=== PATIENT | female | born 1965 | race Caucasian/White ===

== ENCOUNTER 2024-09-30 09:36 | Outpatient (REF) | payer BC, SELFPAY ==
--- NOTE | ~2024-09-30 | XR_ITS ---
CLINICAL HISTORY: M54.12 - Radiculopathy, cervical region Three views of the lumbar spine. COMPARISON: None provided. FINDINGS: Five eti-mia-jehzjeq lumbar type vertebral bodies. Grade 1 anterolisthesis of L5 on S1 with likely bilateral pars defects at L5. Vertebral body heights are maintained. No evidence of acute vertebral body injury. Marginal osteophytes present throughout the lumbar spine. Facet joint arthrosis in the lower lumbar spine most pronounced at L5-S1. There is neural foraminal narrowing at L5-S1. Visualized portions of the bones of the pelvis appear intact. IMPRESSION: 1. No radiographic evidence of acute injury to the lumbar spine. 2. Grade 1 anterolisthesis of L5 on S1 likely secondary to bilateral pars defects at L5. 3. Multilevel degenerative changes of the lumbar spine most pronounced at L5-S1. This document has been electronically signed by: Tre Martínez MD on 10/01/2024 16:48:22
--- NOTE | ~2024-09-30 | XR_ITS ---
CLINICAL HISTORY: M54.12 - Radiculopathy, cervical region Five views of the cervical spine. COMPARISON: None provided. FINDINGS: Grade 1 anterolisthesis of C4 on C5. No evidence of acute vertebral body injury. Normal C1-C2 articulation. Loss of disc space height in the midcervical most pronounced at C5-6. Facet joint arthrosis present throughout the cervical spine. Neural foraminal narrowing most pronounced on the right at C2-C3 and C5-6 and on the left at C5-6. Visualized paravertebral soft tissues and lung apices are unremarkable. IMPRESSION: 1. No radiographic evidence of acute injury to the cervical spine. 2. Grade 1 anterolisthesis of C4 on C5. 3. Moderate to advanced multilevel cervical spondylosis most pronounced at C5-6. This document has been electronically signed by: Tre Martínez MD on 10/01/2024 16:50:55
== END 2024-09-30 09:37 | disposition home or self-care (01) ==
LOC: HO.XRAY 09:36
PROVIDERS: PCP Internal Medicine; Visit Provider Internal Medicine
DX: Z76.89 Persons encountering health services in other specified circumstances (principal); R20.0 Anesthesia of skin; M54.12 Radiculopathy, cervical region; J45.909 Unspecified asthma, uncomplicated; Z13.31 Encounter for screening for depression; Z13.30 Encounter for screening examination for mental health and behavioral disorders, unspecified
CPT/HCPCS: 72050; 72100; 96127

== ENCOUNTER 2024-09-30 09:36 | Outpatient (AMB) | payer BC, SELFPAY ==
--- NOTE | 2024-09-30 09:49 | MHC.PC.OV ---
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 Intake Note: New patient visit Marketing Support Specialist Required: No Allergies No Known Allergies Allergy (Verified 09/30/24 09:49) Tobacco use date assessed: 09/30/24 Dental Screening Dental Screen Date: 09/30/24 Did you have a dental visit in the last 12 months?: Yes Did you have a dental problem in the last 6 months where you did not have access to dental care?: No Was dental information given to patient?: Patient has dentist HPI HPI Comments History of Present Illness Details 59 year old female with a past medical history of asthma, sinusitis presenting to [facility]. Transfer from [facility] Asthma: Controlled on current medications. Has shoulder pain, tightness orginating from neck, some tingling down arm. Bilateral foot pain, numbness tingling. 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 NAD EYES: EOMI. Anicteric. HENT: Moist mucous membranes. No scleral icterus. No cervical lymphadenopathy. LUNGS: Clear to auscultation bilaterally. CARDIOVASCULAR: Regular rate and rhythm. No murmur. No JVD. ABDOMEN: Soft, non-tender +bs EXTREMITIES: No edema. Non-tender. SKIN: No rashes or lesions. Warm. NEUROLOGIC: No focal neurological deficits. CN II-XII grossly intact PSYCHIATRIC: Cooperative. Appropriate mood and affect [facility] Surgical History H/O knee surgery Family History Mother Asthma HTN (hypertension) Bladder cancer Social History Housing: House Alcohol intake: current Patient Tobacco Use Status: Former Tobacco user (quit at 21 years old) Cigarette Packs Per Day: 0.5 Years Smoked: 4 e-Cigarette/Vaping Use: Never Used Second Hand Smoke Exposure: No service: No Current occupational status: employed Current occupation: customer service Current occupational exposures/hazards: No Cognitive needs: No Hearing needs: No Vision needs: Yes (reading glasses) Questionnaire PHQ-9 Over the last 2 weeks, how often have you been bothered by any of the following problems? 1. Little interest or pleasure in doing things: not at all 2. Feeling down, depressed, or hopeless: not at all 3. Trouble falling or staying asleep, or sleeping too much: not at all 4. Feeling tired or having little energy: not at all 5. Poor appetite or overeating: not at all 6. Feeling bad about yourself - or that you are a failure or have let yourself or your family down: not at all 7. Trouble concentrating on things, such as reading the newspaper or watching television: not at all 8. Moving or speaking so slowly that other people could have noticed. Or the opposite - being so fidgety or restless that you have been moving around a lot more than usual: not at all 9. Thoughts that you would be better off or of hurting yourself in some way: not at all Total score: 0 Depression Screening Interpretation: Negative Depression Screening Done: Yes 28750 - PHQ-9 Billing: Yes Source: Developed by Drs. Eliud Emmanuel, Alyssa Quezada, Tico Sheehan and colleagues, with an educational yamilet from [employer]. Thrive Questionnaire Date Thrive assessed: 09/24/24 I am a: Patient What is your living situation today?: I have a steady place to live Within the past 12 months, did the food you bought not last and you didn't have the money to get more?: Never true Within the past 12 months, did you worry whether your food would run out before you got money to buy more?: Never true Do you have trouble paying for medicines?: No Do you have trouble getting transportation to medical appointments?: No Do you have trouble paying your heating and electricity bill?: No Do you have trouble taking care of your child, family member or friend?: No Do you have trouble with day-to-day activities such as bathing, preparing meals, shopping, managing finances, etc.?: No Are you currently unemployed and looking for a job?: No Are you interested in more education?: No Please select the resources that you would like help with: None Currently or been in a relationship where the following occur: No concerns reported THRIVE Score: 0 AUDIT C Alcohol Use Questionnaire (AUDIT-C) 1. How often do you have a drink containing alcohol?: 2-3 times a week 2. How many drinks containing alcohol do you have on a typical day when you are drinking?: 1 or 2 3. How often do you have six or more drinks on one occasion?: Never Total Score: 3 ELADIO-7 AMB Questionnaire ELADIO-7 Date ELADIO - 7 assessed: 09/30/24 Feeling nervous, anxious, or on edge: 0 = Not at all Not being able to stop or control worryin = Not at all Worrying too much about different things: 0 = Not at all Trouble relaxin = Not at all Being so restless that it is hard to sit still: 0 = Not at all Becoming easily annoyed or irritable: 0 = Not at all Feeling afraid as if something awful might happen: 0 = Not at all Total ELADIO-7 score (0-4 normal; 5-9 mild; 10-14 moderate; 15-21 severe): 0 Source: Developed by Drs. Eliud Emmanuel, Aylssa Quezada, Tico Sheehan and colleagues, with an educational yamilet from [employer]. ELADIO-7 Assessment Billing ELADIO-7 Assessment Tool: ELADIO-7 Assessment 78942 Physical exam (Primary Care) Vital Signs: Last Vital Signs Temp 98 F 09/30/24 09:53 Pulse 73 09/30/24 09:53 Resp 12 09/30/24 09:53 BP 124/82 09/30/24 09:53 Pulse Ox 95 09/30/24 09:53 Oxygen Delivery Method Room Air 09/30/24 09:53 BMI result Body Mass Index 25.6 Tobacco/Smoking Status: Tobacco use Status Tobacco use date assessed 09/30/24 09/30/24 10:02 Patient Tobacco Use Status Former Tobacco user (quit at 09/30/24 10:02 21 years old) e-Cigarette/Vaping Use Never Used 09/30/24 10:02 PHQ-9: PHQ-9 Score PHQ-9: Total score 0 10/01/24 14:51 Depression Screening Interpretation: Negative Thrive Assessment: Date of Thrive Assessment Date Thrive assessed 09/24/24 09/30/24 09:49 Currently or been in a relationship where the following occur: No concerns reported Coding Level of Care Code New Pt Level 4 (25188) Complex EM visit Add On G2211 Diagnoses Encounter to establish care Z76.89 Numbness of right foot R20.0 Cervical radiculopathy M54.12 Additional Codes ELADIO-7 Assessment Billing - ELADIO-7 Assessment Tool: ELADIO-7 Assessment 01122 ([id number]) PHQ-9 - 47163 - PHQ-9 Billing: Yes ([id number]) Assessment & Plan Assessment & Plan (1) Encounter to establish care: Code(s): Z76.89 - Persons encountering health services in other specified circumstances Category: Medical (2) Numbness of right foot: Code(s): R20.0 - Anesthesia of skin Category: Medical (3) Cervical radiculopathy: Code(s): M54.12 - Radiculopathy, cervical region Category: Medical Plan 59 year old to establish care Past medical surgical, social reviewed Right foot numbness, peripheral numbness-xrays ordered GI referral colon cancer screening Orders: Orders Complete Blood Count Auto Diff 09/30/24 M54.12 - Radiculopathy, cervical region, R20.0 - Anesthesia of skin, Z13.0 - Encounter for screening for diseases of the blood and blood-forming organs and certain disorders involving the immune mechanism, Z13.220 - Encounter for screening for lipoid disorders, Z13.228 - Encounter for screening for other metabolic disorders Comprehensive Met. Panel 09/30/24 M54.12 - Radiculopathy, cervical region, R20.0 - Anesthesia of skin, Z13.0 - Encounter for screening for diseases of the blood and blood-forming organs and certain disorders involving the immune mechanism, Z13.220 - Encounter for screening for lipoid disorders, Z13.228 - Encounter for screening for other metabolic disorders Lipid Panel 09/30/24 M54.12 - Radiculopathy, cervical region, R20.0 - Anesthesia of skin, Z13.0 - Encounter for screening for diseases of the blood and blood-forming organs and certain disorders involving the immune mechanism, Z13.220 - Encounter for screening for lipoid disorders, Z13.228 - Encounter for screening for other metabolic disorders Vitamin B12 and Folate 09/30/24 M54.12 - Radiculopathy, cervical region, R20.0 - Anesthesia of skin, Z13.0 - Encounter for screening for diseases of the blood and blood-forming organs and certain disorders involving the immune mechanism, Z13.220 - Encounter for screening for lipoid disorders, Z13.228 - Encounter for screening for other metabolic disorders Hemoglobin A1c 09/30/24 M54.12 - Radiculopathy, cervical region, R20.0 - Anesthesia of skin, Z13.0 - Encounter for screening for diseases of the blood and blood-forming organs and certain disorders involving the immune mechanism, Z13.220 - Encounter for screening for lipoid disorders, Z13.228 - Encounter for screening for other metabolic disorders XR cervical spine 4V 09/30/24 M54.12 - Radiculopathy, cervical region, R20.0 - Anesthesia of skin IRON PROFILE 09/30/24 M54.12 - Radiculopathy, cervical region, R20.0 - Anesthesia of skin, Z13.0 - Encounter for screening for diseases of the blood and blood-forming organs and certain disorders involving the immune mechanism, Z13.220 - Encounter for screening for lipoid disorders, Z13.228 - Encounter for screening for other metabolic disorders XR lumbar spine 2-3V 09/30/24 M54.12 - Radiculopathy, cervical region, R20.0 - Anesthesia of skin Referrals Gastroenterology Referral Z12.11 - Encounter for screening for malignant neoplasm of colon
[2024-09-30 09:53] VITALS: BP 124/82; PULSE 73; RESP 12; TEMP 36.6; O2SAT 95; BMI 25.6
== END 2024-09-30 10:21 | disposition home or self-care (01) ==
LOC: HO.HMCFM 09:37
PROVIDERS: PCP Internal Medicine; Visit Provider Internal Medicine
DX: Z76.89 Persons encountering health services in other specified circumstances (principal); R20.0 Anesthesia of skin; M54.12 Radiculopathy, cervical region

== ENCOUNTER 2024-09-30 10:34 | Outpatient (REF) | payer BC, SELFPAY ==
[2024-09-30 14:44] LABS: MANUAL DIFF FLAG NO
[2024-09-30 14:55] LABS: Hematocrit 41.5 % (37.0-47.0); Hemoglobin 13.6 g/dl (12.0-16.0); Imm Gran Abs Auto 0.02 X10*3/uL (0.00-0.03); Imm Gran Pct Auto 0.3 % (0.0-0.4); Lymphocytes Absolute Auto 1.7 X10*3/uL (1.2-4.9); Mean Corpuscular HGB Conc 32.8 g/dl (31.0-35.0); Mean Corpuscular Hemoglobin 29.1 pg (27.0-33.0); Mean Corpuscular Volume 88.7 fL (80.0-98.0); NRBC Abs Auto 0.000 X10*3/uL (0.0-0.012); NRBC Pct Auto 0.0 /100WBC (0.0-0.2); Platelet Count 284 X10*3/uL (160-400); Red Blood Count 4.68 X10*6/uL (4.20-5.50); White Blood Count 6.7 X10*3/uL (4.8-10.8)
[2024-09-30 15:09] LABS: Hemoglobin A1C 135.1510 umol/L; Total Hemoglobin (HGBA1C) 3543.5086 umol/L
[2024-09-30 15:23] LABS: Alanine Aminotransferase 26 U/L (0-31); Albumin Level 4.3 g/dL (3.5-5.0); Alkaline Phosphatase 58 U/L (39-117); Anion Gap 11 (12-20); Aspartate Amino Transferase 31 U/L (5-31); Blood Urea Nitrogen 21 mg/dL (9-16); Calcium 9.0 mg/dL (8.4-10.2); Carbon Dioxide 25 mmol/L (22-29); Chloride 106 mmol/L (96-108); Cholesterol 228 mg/dL (<200); Estimated Glomerular Filt Rate > 60; HDL Cholesterol 82 mg/dL (>40); Iron 87 mcg/dL (30-160); Percent Iron Saturation 24 % (15-50); Potassium 4.4 mmol/L (3.3-5.1); Sodium 138 mmol/L (135-145); Total Iron Binding Capacity 362 mcg/dL (228-428); Total Protein 6.6 g/dL (6.5-8.0); Triglycerides 80 mg/dL (<150); Unsaturated Iron Binding 275 ug/dL
[2024-09-30 15:52] LABS: Folate 12.2 ng/mL (> or = 4.0); Vitamin B12 468 pg/mL (200-900)
== END 2024-09-30 10:35 | disposition home or self-care (01) ==
LOC: HO.WFDLDS 10:34
PROVIDERS: Visit Provider Internal Medicine
DX: R20.0 Anesthesia of skin (principal); Z13.228 Encounter for screening for other metabolic disorders; Z13.0 Encounter for screening for diseases of the blood and blood-forming organs and certain disorders involving the immune mechanism; Z13.220 Encounter for screening for lipoid disorders; M54.12 Radiculopathy, cervical region; Z13.1 Encounter for screening for diabetes mellitus
CPT/HCPCS: 36415; 80053; 80061; 82607; 82746; 83036; 83540; 85025

== ENCOUNTER → 2024-09-30 11:24 | Outpatient (BNV) | payer BC, SELFPAY | PROVIDERS: PCP Internal Medicine; Visit Provider Radiology Diagnostic Radiology | DX: M47.22 Other spondylosis with radiculopathy, cervical region (principal); M43.12 Spondylolisthesis, cervical region; M43.16 Spondylolisthesis, lumbar region; M51.379 Other intervertebral disc degeneration, lumbosacral region without mention of lumbar back pain or lower extremity pain | CPT/HCPCS: 72050; 72100 ==

== ENCOUNTER 2025-02-03 10:58 | Outpatient (AMB) | payer BC, SELFPAY ==
--- NOTE | 2025-02-03 11:09 | MHC.OFFVIS ---
Vital Signs 02/03/25 11:14 Height 5 ft 4 in Weight 144 lb BMI 24.7 BP 122/74 Blood Pressure Location Rt brachial Position Sitting Pulse 78 Pulse Source Pulse Oximeter Pulse Oximetry (%) 95 Oxygen Delivery Method Room Air Intake Visit Reasons: Colonoscopy Screening Intake Note: New pt for recall colo screening + eval chronic GERD. CC: C.O. intermittent GERD w/o active tx. Pt states that she had previously trialed omeprazole w/ mixed results. Pt never received EGD as this was going to occur during COVID 19 pandemic according to pt. No additional sx to report. 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 female with past medical history of asthma, GERD is here today for pre colonoscopy screening.? Patient was sent to us by her PCP.? Patient reports she had colonoscopy in the past.? Patient reports acid reflux on a. Was placed on omeprazole in the past. Taking as needed. Never had endoscopy in the past.? Denies any family history of CRC.? Denies history of difficulty with sedation or anesthesia in the past.? Negative for history of sleep apnea.? Denies any history of cardiac, renal, pulmonary, or hepatic disease.?? No history of infectious? diseases like hepatitis A, B, C, HIV or tuberculosis.? Patient is not on any anticoagulation [facility] Medical History (Updated 02/03/25 @ 19:16 by Frannie Royal, [facility]) GERD (gastroesophageal reflux disease) Hiatal hernia Surgical History Hx of colonoscopy H/O knee surgery Family History Mother Asthma HTN (hypertension) Bladder cancer Social History Housing: House Alcohol intake: current Patient Tobacco Use Status: Former Tobacco user (quit at 21 years old) Cigarette Packs Per Day: 0.5 Years Smoked: 4 e-Cigarette/Vaping Use: Never Used Second Hand Smoke Exposure: No service: No Current occupational status: employed Current occupation: customer service Current occupational exposures/hazards: No Cognitive needs: No Hearing needs: No Vision needs: Yes (reading glasses) Review of Systems Const Denies weight gain and Denies weight loss ENT Reports no additional complaints, Denies dysphagia and Denies odynophagia Card Reports no additional complaints Resp Reports no additional complaints GI Reports abdominal pain (Epigastric), Denies belching, Denies melena, Denies bloating, Denies change in bowel habits, Denies dysphagia, Denies excessive flatus, Denies dyspepsia, Reports heartburn, Denies diarrhea, Denies loose stools, Denies nausea, Denies odynophagia and Denies vomiting Musc Reports no additional complaints Neuro Reports no additional complaints Psych Reports no additional complaints Endo Reports no additional complaints Physical Exam Vital Signs: Last Vital Signs Pulse 78 02/03/25 11:14 BP 122/74 02/03/25 11:14 Pulse Ox 95 02/03/25 11:14 Oxygen Delivery Method Room Air 02/03/25 11:14 BMI result Body Mass Index 24.7 Const General: healthy appearing, no acute distress and well developed Nutritional Appearance: well nourished Orientation/consciousness: patient oriented x3 Resp Effort & Inspection: normal respiratory effort, able to speak in complete sentences, no tracheal deviation and symmetric chest movement Auscultation: clear to auscultation bilaterally Cardio Rate: regular rate GI Inspection: Yes normal to inspection and No distended Palpation (GI): Soft to palpation, not firm, nontender and No hepatosplenomegaly present Auscultation: normal bowel sounds General: Yes no CVA tenderness Back/Spine/Pelvis Back: no CVA tenderness Skin General skin exam: elasticity normal, turgor normal and dry skin Neuro General: patient oriented x3 Psych Appearance: grossly normal Mental Status: mental status grossly normal Assessment & Plan Assessment & Plan (1) Screening for colon cancer: Code(s): Z12.11 - Encounter for screening for malignant neoplasm of colon Category: Medical (2) GERD (gastroesophageal reflux disease): Code(s): K21.9 - Gastro-esophageal reflux disease without esophagitis Category: Medical Qualifiers: Esophagitis presence: esophagitis presence not specified Qualified Code(s): K21.9 - Gastro-esophageal reflux disease without esophagitis Plan Patient denies any cardiac or respiratory symptoms.? Reports occasional reflux depending on what she eats. Patient will be sent for upper endoscopy. We will also send her for upper GI series with barium swallow. Denies any issues with anesthesia in the past.? Denies any history of sleep apnea.? No history infectious diseases in the past or present.? Not on any anticoagulation therapy.? No family or personal history of colon cancer or polyps.? Patient denies melena, hematochezia, unintentional weight loss or ribbon like stools.? Discussed at length the pre-procedure,? prep, diet & medications as well as what to expect prior, during and after the procedure.?? Stressed the importance of good bowel prep.? Recommended the use of Vaseline or Calmoseptine OTC & baby wipes with bowel movements to promote comfort.? ?Patient verbalizes understanding and agrees to plan of care.? She was given the opportunity to ask questions and all questions answered.? We will see her after the procedure.? Orders: Orders [place] upper GI w Ba Swallow Today K21.9 - Gastro-esophageal reflux disease without esophagitis Referrals GI Procedure Notification K21.9 - Gastro-esophageal reflux disease without esophagitis, Z12.11 - Encounter for screening for malignant neoplasm of colon Medications: New polyethylene glycol 3350 (Miralax) As directed by gastroenterology department at [facility] 238 grams PO ONCE 238 grams 0RF Z12.11 - Encounter for screening for malignant neoplasm of colon bisacodyl (Dulcolax (bisacodyl)) take 4 tabs at noon the day before your colonoscopy 20 mg (4 x 5 mg) PO ONCE 4 tabs 0RF constipation 1 day Z12.11 - Encounter for screening for malignant neoplasm of colon Coding Level of Care Code New Pt Level 4 (02806) Diagnoses Screening for colon cancer Z12.11 Gastroesophageal reflux disease, unspecified whether esophagitis present K21.9 Esophagitis presence: esophagitis presence not specified Time Spent (min) 50 Comment 35 minutes spent with patient and additional 15 minutes spent reviewing her records
[2025-02-03 11:14] VITALS: BP 122/74; PULSE 78; O2SAT 95; BMI 24.7
--- OUTSIDE RECORDS SUMMARY | 2025-02-03 13:21 | XMS_ITS ---
Author Name [facility] Organization Unknown Care Team Organization Name Specialty Phone Email Start Date End Da te [facility] NULL Primary Care 09/08/2022 11/19/2023 [facility] Primary [facility] 04/10/202210/31 [facility] Primary Care 02/07/202210/31
--- OUTSIDE RECORDS SUMMARY | 2025-02-03 13:21 | XMS_ITS | Clinical Summary ---
Author Organization [facility] [address] [facility] l[facility] Address [address] [place] [address] Phone Care Team Providers Care Management Lead Name Role Phone Unavailable Primary Care Provider Unavailabl e Allergies Active Allergy Reactions Criticality Noted Date Comments Other 07/20/2017 Seasonal Allergies Medications albuterol 2.5 mg /3 mL (0.083 %) nebulizer solution Inhale 3 mL (2.5 mg total) by mouth every 4 (four) hours if needed for wheezing or shortness of breath (cough). 0 Active fluticasone propionate (FLONASE) 50 mcg/actuation nasal spray Administer 2 sprays into affected nostril(s) 1 (one) time each day. 3 Active montelukast (SINGULAIR) 10 mg tabletIndications :Moderate persistent asthma without complication Take 1 tablet (10 mg total) by mouth at bedtime. 90 tablet 2 4 Active budesonide-formot Kiki (SYMBICORT) 160-4.5 mcg/actuation inhalerIndication s:Moderate persistent asthma without complication Inhale 2 puffs by mouth 2 (two) times a day. Rinse mouth with water after use to reduce aftertaste and incidence of candidiasis. Do not swallow. 3 each 3 4 Active albuterol HFA (PROAIR HFA ; PROVENTIL HFA ; VENTOLIN HFA) 90 mcg/actuation inhalerIndication s:Moderate persistent asthma without complication Inhale 2 puffs by mouth every 4 (four) hours if needed for wheezing or shortness of breath (cough). 6.7 g 3 Active Active Problems Problem Noted Date Diagnosed Date Heartburn 07/20/2017 Hiatal hernia with GERD 07/20/2017 Allergic rhinitis 11/30/2011 Asthma 11/30/2011 Immunizations Immunization Administration Dates Next Due Influenza trivalent, 0.5mL, preservative free (Fluarix; FluLaval; Fluzone) ages 6mo and older (Afluria) 3 years and older 12/15/2022,02/20/2022,01/13/2019,01/25,02/10/2017,01/06/2015,02/06/2014 ,01/02/2013,02/21/2012 Influenza trivalent, MDCK, 0 .5mL, preservative free (Flucelvax) 6mo and older 03/06/2024 [employer] SARS-CoV-2 COVID-19, mRNA, LNP-S, preservative free 03/28/2021,08/20/2020,07/30/2020 Pneumococcal polysaccharide 23 valent (Pneumovax 23) 2yo and older 11/30/2011 Tdap Tetanus diptheria acell ular pertussis (Boostrix; Adacel) 7yo and older 05/19/2022,11/30/2011 Zoster recombinant (Shingrix ) 19yo and older 05/23/2020,02/13/2020 Surgical History Surgery Date Site/Laterality Comments KNEE ARTHROSCOPY 2009 PROCEDURE: OR ARTHROSCOPY AID TX SPINE&/FX KNEE W/O FIXJ; COMMENT: acl repair 2009 - right WISDOM TOOTH EXTRACTION PROCEDURE: HISTORICAL WISDOM TEETH EXTRACTION; COMMENT: 4 out COLONOSCOPY 08/14/2014 PROCEDURE: HISTORICAL COLONOSCOPY; COMMENT: Diverticulosis, hemorrhoids, no polyps Medical History Medical History Date Comments Asthma 11/30/2011 DX:Asthma Allergic rhinitis 11/30/2011 DX:Allergic rh initis Right knee injury 12/2009 DX:Right knee injury; COMMENT: Orthopedist in [place] Family history of diabetes mellitus DX:Family history of diabete s mellitus Dysuria 03/30/2009 DX:Dysuria Asthmatic bronchitis 07/20/2006,11/20/2002 DX:Asth matic bronchitis Hemoptysis 11/16/2005 DX:Hemoptysis Lower back pain 10/22/2003 DX:Lower back pa in Historical Medical DX 08/20/2003 DX:Hammert oe; COMMENT: [place] with paresthesias Anxiety 12/19/2001 DX:Anxiety; COMM ENT: situational anxiety Family History Medical History Relation Name Comments Asthma Mother Bladder Cancer Mother diagnosed in her early 80's, dx 2014 Esophageal cancer Mother Breast cancer Neg Hx Colon cancer Neg Hx Ovarian cancer Neg Hx Uterine cancer Neg Hx Relation Name Status Comments Brother Judd Alive healthy Father Alive healthy Maternal Grandfather (Age 29) Bl ood clot - heart? Maternal Grandmother (Age 80s) k nee pain Mother Alive asthma, bladder cancer, bladder tumor removed 5 yrs ago Paternal Grandfather (Age 50s) U K Paternal Grandmother (Age 90s) o ld age Sister 1 Anjali Alive times 3, health y, one has rheumatoid arthritis Sister 2 Jeane Alive Sister 3 Ericka Alive Son 1 Alive Son 2 Alive Social History Tobacco Use Types Packs/Day Years Used Date Smoking Tobacco: Former Cigarettes Q uit: 04/02/1986 Smokeless Tobacco: Never Tobacco Cessation:Counseling Given: Not Answered Alcohol Use Standard Drinks/Week Comments Yes 0 (1 standard drink = 0.6 oz pur e alcohol) Housing Instability Answer Date Recorde d Are you worried that in the next 2 months you may not have stable housing? No 03/06/2024 Food Access & Nutrition Answer Date Rec orded Do you have access to a vari ety of food including fruits and vegetables? Yes 03/06/2024 Health Literacy Answer Date Recorded How often do you need to hav e someone help you when you read instructions, pamphlets, or other written material from your doctor or pharmacy? Never 03/06/2024 Caregiver: How often do you need to have someone help you when you read instructions, pamphlets, or other written material from your doctor or pharmacy? Not on file 03/06/2024 Financial Risk Answer Date Recorded How hard is it for you to pa y for the very basics like food, housing, medical care, and air conditioning / heating? Somewhat hard 03/06/2024 Transportation Answer Date Recorded Has the lack of transportati on kept you from meetings, work, or from getting things needed for daily living? No Has the lack of transportati on kept you from medical appointments or from getting medications? No 03/06/2024 Social Isolation Answer Date Recorded How often do you feel lonely or isolated from th ose around you? Never 03/06/2024 Food Risk Answer Date Recorded Within the past 12 months we worried whether our food would run out before we got money to buy more. Never true 03/06/2024 Within the past 12 months th e food we bought just didn't last and we didn't have money to get more. Never true 03/06/2024 Dependent Care Answer Date Recorded Do you need help finding or paying for care for your loved ones. For example, child care supervisor or elderly care for an older adult? No 03/06/2024 Education Answer Date Recorded Do you think completing more education or training, like finishing a GED, going to college, or learning a trade, would be helpful for you? No 03/06/2024 Employment and Income Answer Date Recor ded During the last four weeks, have you been actively looking for work? No 03/06/2024 Living Situation Answer Date Recorded What is your living situation? Unrecognized valu e 03/06/2024 Comments No Sex and Gender Information Value Date Recorded Sex Assigned at Not on file Legal Sex Female 2:20 PM EST Gender Identity Not on file Sexual Orientation Not on file Obstetrics History Para Term AB IAB SAB Ectopic Multiple Livin g Live Births 2 2 2 2 Date Outcome GA Total Labor Labor/2nd/3rd Weight Sex Type Anes PTL Carolyn A1 A5 Name Clin Term Term Last Filed Vital Signs Vital Sign Reading Time Taken Comments Blood Pressure 128/80 03/06/2024 4:06 PM EST Pulse 68 03/06/2024 4:06 PM EST Temperature 36.3 C (97.3 F) 03/06/2024 4:06 PM EST Respiratory Rate - - Oxygen Saturation - - Inhaled Oxygen Concentration - - Weight 66 kg (145 lb 9.6 oz) 03/06/2024 4:06 PM EST Height 165.1 cm (5' 5 ) 03/06/2024 4:06 PM EST Body Mass Index 24.23 03/06/2024 4:06 PM EST Plan of Treatment Health Maintenance Due Date Last Done Comments Pneumococcal Vaccine: 50+ Years (2 of 2 - PCV) 11/29/2012 11/30/2011 HIV Screening 03/11/2022 Depression Screening 04/02/2024 03/06/2024 Colorectal Cancer Screening: Colonoscopy 08/14/2024 08/14/2014, 08/14/2014 COVID-19 Vaccine ( season) 2024 03/28/2021, 08/20/2020, 07/30/2020 Social Influencers of Health Screening 03/06/2025 03/06/2024 Breast Cancer Screening 05/21/2026 05/21/19, 04/14/2023, 04/08/2022, Additional history exists Cervical Cancer Screening: HPV 08/18/2026 08/18/2021 Cholesterol Screening (Lipid Panel) 05/19/2027 05/19/2022 DTaP,Tdap,and Td Vaccines (3 - Td or Tdap) 05/19/2032 05/19/2022, 11/30/2011 Hepatitis C Screening Completed 01/11/2015 Zoster Vaccines Completed 05/23/2020, 02/13/2020 Influenza Vaccine Completed 01/27/2025, , 12/15/2022, Additional history exists RSV Immunization Adult Patients Completed 01/27/2025 HIB Vaccines Aged Out No longer eligi ble based on patient's age to complete this topic HPV Vaccines Aged Out No longer eligi ble based on patient's age to complete this topic Hepatitis A Vaccines Aged Out No long er eligible based on patient's age to complete this topic Hepatitis B Vaccines Aged Out No long er eligible based on patient's age to complete this topic IPV Vaccines Aged Out No longer eligi ble based on patient's age to complete this topic MMR Vaccines Aged Out No longer eligi ble based on patient's age to complete this topic Meningococcal ACWY Vaccine Aged Out N o longer eligible based on patient's age to complete this topic Meningococcal B Vaccine Aged Out No l onger eligible based on patient's age to complete this topic RSV Immunization Patients Under 20 months Aged Out No longer eligible based on patient's age to complete this topic Varicella Vaccines Aged Out No longer eligible based on patient's age to complete this topic Procedures Procedure Name Priority Date/Time Associated Diagnosis Comments MG MAMMO DIGITAL SCREENING W [place] BILAT Routine 05/21/2024 7:49 AM EST Encounter for screening mammogram for breast cancer LIPID PANEL Routine 05/19/2022 HM HPV Routine 08/18/2021 HEPATITIS C SCREENING Routine 01/11/2015 COLONOSCOPY Routine 08/14/2014 from Last 3 Months or Most Recently Relevant to Health Maintenance Results * MG Mammo Digital Screening w [place] bilat (05/21/2024 7:49 AM EST) Anatomical Region Laterality Modality Breast Bilateral Mammography 05/21/2024 4:20 PM EST Impressions 05/21/2024 4:25 PM EST 1. No mammographic evidence of malignancy 2. Scattered fibroglandular tissue BI-RADS CATEGORY: 2 - BENIGN RECOMMENDATION: Screening bilateral mammogram is recommended in 1 year. Mammo Location: [facility], [address] [place] [address], [id number], . -------- FINAL REPORT -------- Dictated By: Gibran Reeder Dictated Date: 05/21/2024 16:20 ET Assigned Physician: Gibran Reeder Reviewed and Electronically Signed By: Gibran Reeder Signed Date: 05/21/2024 16:25 ET Workstation ID: [id number] Transcribed By: Self Edit Transcribed Date: 05/21/2024 16:20 ET Narrative 05/21/2024 4:25 PM EST A BILATERAL DIGITAL 3D SCREENING MAMMOGRAPHY HISTORY: Routine screening. No family history of breast cancer. COMPARISON: Multiple priors dating back to 02/14/2020 Technique: Bilateral full field digital mammography (3D) was performed using standard CC and MLO projections CAD was used to evaluate this mammogram. FINDINGS: Right: No suspicious masses, groups of microcalcification or areas of architectural distortion identified. Stable typically benign parenchymal asymmetries. Left: No suspicious masses, groups of microcalcification or areas of architectural distortion identified. Stable typically benign parenchymal asymmetries. BREAST DENSITY: B - There are scattered areas of fibroglandular density. Procedure Note Gibran Reeder MD - 05/21/2024 A BILATERAL DIGITAL 3D SCREENING MAMMOGRAPHY HISTORY: Routine screening. No family history of breast cancer. COMPARISON: Multiple priors dating back to 02/14/2020 Technique: Bilateral full field digital mammography (3D) was performedusing standard CC and MLO projections CAD was used to evaluate this mammogram. FINDINGS: Right: No suspicious masses, groups of microcalcification or areas ofarchitectural distortion identified. Stable typically benign parenchymalasymmetries. Left: No suspicious masses, groups of microcalcification or areas ofarchitectural distortion identified. Stable typically benign parenchymalasymmetries. BREAST DENSITY: B - There are scattered areas of fibroglandular density. IMPRESSION: 1. No mammographic evidence of malignancy 2. Scattered fibroglandular tissue BI-RADS CATEGORY: 2 - BENIGN RECOMMENDATION: Screening bilateral mammogram is recommended in 1 year. Mammo Location: [facility], [address] [place] [address], [id number], . -------- FINAL REPORT -------- Dictated By: Gibran Reeder Dictated Date: 05/21/2024 16:20 ET Assigned Physician: Gibran Reeder Reviewed and Electronically Signed By: Gibran Reeder Signed Date: 05/21/2024 16:25 ET Workstation ID: [id number] Transcribed By: Self Edit Transcribed Date: 05/21/2024 16:20 ET Nathaniel De DO IM BI PROCEDURES Final Result * (ABNORMAL) Lipid panel (05/19/2022) LDL/HDL Ratio 3 0 - 4 Triglycerides 53 0 - 150 mg/dL Cholesterol 203(A) 0 - 200 mg/dL HDL 79 >=40 mg/dL LDL Cholesterol 114(A) 0 - 100 mg/dL Blood Venous blood specimen / Unknown Historical Provider LAB BLOOD ORDERABLES Caprice l Result * Cervical Cancer Screening: HPV (08/18/2021) Pathologist [facility] Cervical Cancer Screening: HPV Negative, Abstracted Historical Provider HEALTH MAINTENANCE Final Result * Hepatitis C Screening (01/11/2015) Pathologist [facility] Hepatitis C Screening Abstracted [facility] Provider HEALTH MAINTENANCE Final Result * Colonoscopy (08/14/2014) Pathologist [facility] Colonoscopy No Interpretation , Abstracted Anatomical Region Laterality Modality Other Historical Provider HEALTH MAINTENANCE Final Result from Last 3 Months or Most Recently Relevant to Health Maintenance [place] [address] [place]
== END 2025-02-03 12:10 | disposition home or self-care (01) ==
LOC: HO.HGI 10:58
PROVIDERS: PCP Internal Medicine; Visit Provider Nurse Practitioner Family
DX: Z01.818 Encounter for other preprocedural examination (principal); Z12.11 Encounter for screening for malignant neoplasm of colon; K21.9 Gastro-esophageal reflux disease without esophagitis
CPT/HCPCS: S0285